=== PATIENT | female | born 1995 | race Caucasian/White ===

== ENCOUNTER 2023-12-29 15:53 | Emergency (ER) | payer OTHER, SELFPAY ==
--- NOTE | 2023-12-29 17:03 | RAD REPORT ---
EXAM DESCRIPTION: RAD - Tib Fib Right - 12/29/2023 4:58 pm CLINICAL HISTORY: PAIN COMPARISON: No comparisons FINDINGS/IMPRESSION: No acute fracture. No malalignment. No significant focal degenerative changes.
--- NOTE | 2023-12-29 17:52 | ER ---
Nurse's Notes [facility] Name: Marilee Theodore Age: 28 yrs Sex: Female : 1995 Arrival Date: 12/29/2023 Time: 15:53 Bed DX3 Private MD: Diagnosis: Contusion of right lower leg Presentation: 12/28 16:27 Chief complaint: Patient states: Pt states she was rushing while walking down concrete tl4 steps and fell backward at approx 1000. Pt c/o pain in her right lower leg. Pt denies LOC, striking her head. Coronavirus screen: At this time, the client does not indicate any symptoms associated with coronavirus-19. Ebola Screen: No symptoms or risks identified at this time. Initial Sepsis Screen: Does the patient meet any 2 criteria? No. Patient's initial sepsis screen is negative. Does the patient have a suspected source of infection? No. Patient's initial sepsis screen is negative. Risk Assessment: Do you want to hurt yourself or someone else? Patient reports no desire to harm self or others. Onset of symptoms was December 29, 2023 at 10:00. 16:27 Method Of Arrival: Ambulatory tl4 16:27 Acuity: CARLEEN 4 tl4 Triage Assessment: 16:30 General: Appears in no apparent distress. Behavior is calm, cooperative. Pain: tl4 Complains of pain in right leg. EENT: No signs and/or symptoms were reported regarding the EENT system. Neuro: Level of Consciousness is awake, alert, obeys commands, Oriented to person, place, time, situation, Moves all extremities. Full function. Cardiovascular: Capillary refill < 3 seconds Patient's skin is warm and dry. Respiratory: Airway is patent Respiratory effort is even, unlabored, Respiratory pattern is regular, symmetrical, Breath sounds are clear bilaterally. GI: No signs and/or symptoms were reported involving the gastrointestinal system. : No signs and/or symptoms were reported regarding the genitourinary system. Derm: No signs and/or symptoms reported regarding the dermatologic system. Musculoskeletal: No signs and/or symptoms reported regarding the musculoskeletal system. 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 - Infectious Disease History:: Denies. - Social history:: Smoking status: Patient denies any tobacco usage or history of. - Family history:: not pertinent. - Hospitalizations: : No recent hospitalization is reported. Screenin:54 [facility] ED Fall Risk Assessment (Adult) History of falling in the last 3 months, ll1 including since admission Yes- physiologic fall (2 pts) Confusion or Disorientation No (0 pts) Intoxicated or Sedated No (0 pts) Impaired Gait No (0 pts) Mobility Assist Device Used No (0 pt) Altered Elimination No (0 pt) Score/Fall Risk Level 0 - 2 = Low Risk Maintained a safe environment, Hourly rounding (assess needs \T\ fall precautionary measures) done. Abuse screen: Denies threats or abuse. Nutritional screening: No deficits noted. Tuberculosis screening: No symptoms or risk factors identified. Assessment: 17:54 Reassessment: No changes from previously documented assessment. Patient and/or family ll1 updated on plan of care and expected duration. Pain level reassessed. Patient is alert, oriented x 3, equal unlabored respirations, skin warm/dry/pink. Vital Signs: 16:27 BP 141 / 102; Pulse 102; Resp 20; Temp 97.4(TE); Pulse Ox 98% on R/A; Weight 156.94 kg; tl4 Height 5 ft. 7 in. ; Pain 6/10; 16:27 Body Mass Index 54.19 (156.94 kg, 170.18 cm) tl4 16:27 Pain Scale: Adult tl4 ED Course: 15:59 Patient arrived in ED. mg5 16:00 Regulo Gonsales MD is Attending Physician. rn 16:29 Triage completed. tl4 16:32 Arm band placed on right wrist. tl4 16:59 XRAY Tib Fib RIGHT In Process Unspecified. EDMS 17:30 Patient placed in a hallway bed, in a wheelchair. ll1 17:54 Nell Culver, SHON is Primary Nurse. ll1 17:55 Patient has correct armband on for positive identification. Provided Education on: ll1 return for worsening symptoms. 17:55 No provider procedures requiring assistance completed. Patient did not have IV access ll1 during this emergency room visit. Administered Medications: No medications were administered Medication: 17:55 VIS not applicable for this client. ll1 Outcome: 17:51 Discharge ordered by . rn 17:55 Discharged to home ambulatory, ll1 17:55 Condition: stable 17:55 Discharge instructions given to patient, Instructed on discharge instructions, follow up and referral plans. Demonstrated understanding of instructions, follow-up care, 17:56 Patient left the ED. ll1 Signatures: Dispatcher [employer] EDMS Regulo Gonsales MD MD rn Lewis, Lynsay, RN RN ll1 Aby Molina mg5 Neptali Scott RN RN tl4 Corrections: (The following items were deleted from the chart) 16:30 16:29 Home Meds: None; tl4 tl4
--- NOTE | 2023-12-29 17:52 | EDPHYS ---
Physician Documentation [facility] Name: Marilee Theodore Age: 28 yrs Sex: Female : 1995 Arrival Date: 12/29/2023 Time: 15:53 Bed DX3 Private MD: ED Physician Regulo Gonsales HPI: 12/28 16:47 This 28 yrs old Female presents to ER via Ambulatory with complaints of Fall Injury. rn 16:47 Details of fall: The patient fell from an upright position, while walking. rn 16:47 Onset: The symptoms/episode began/occurred today. Associated injuries: The patient rn sustained Right pretibial region. Severity of symptoms: At their worst the symptoms were mild, in the emergency department the symptoms are unchanged. The patient has not experienced similar symptoms in the past. Patient reports walking stairs and slipped, hit right lower extremity on something. Reports pain with flexion and pending but no bony pain. No bruising. Ambulatory. She needs to go back to work so wanted to make sure nothing was broken.. 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 - Infectious Disease History:: Denies. - Social history:: Smoking status: Patient denies any tobacco usage or history of. - Family history:: not pertinent. - Hospitalizations: : No recent hospitalization is reported. ROS: 16:47 Constitutional: Negative for fever, chills, and weight loss, Neck: Negative for injury, rn pain, and swelling, Cardiovascular: Negative for chest pain, palpitations, and edema, Respiratory: Negative for shortness of breath, cough, wheezing, and pleuritic chest pain, Abdomen/GI: Negative for abdominal pain, nausea, vomiting, diarrhea, and constipation, Back: Negative for back pain MS/Extremity: Positive for right pretibial pain Neuro: Negative for headache, weakness, numbness, tingling, and seizure, Exam: 16:47 Constitutional: This is a well developed, well nourished patient who is awake, alert, rn and in no acute distress. MS/ Extremity: Pulses equal, no cyanosis. Neurovascular intact. Full, normal range of motion. Equal circumference. Mild tenderness right mid pretibial region and just lateral to this area. No ecchymosis or open wounds. No gross deformity. Vital Signs: 16:27 BP 141 / 102; Pulse 102; Resp 20; Temp 97.4(TE); Pulse Ox 98% on R/A; Weight 156.94 kg; tl4 Height 5 ft. 7 in. ; Pain 6/10; 16:27 Body Mass Index 54.19 (156.94 kg, 170.18 cm) tl4 16:27 Pain Scale: Adult tl4 MDM: 16:00 Patient medically screened. rn 17:50 Differential diagnosis: contusion, fracture, sprain, strain. Data reviewed: vital rn signs, nurses notes, radiologic studies, plain films, and as a result, I will discharge patient. Counseling: I had a detailed discussion with the patient and/or guardian regarding the historical points, exam findings, and any diagnostic results supporting the discharge/admit diagnosis, radiology results, the need for outpatient follow up, to return to the emergency department if symptoms worsen or persist or if there are any questions or concerns that arise at home. Special discussion: I discussed with the patient/guardian in detail that at this point there is no indication for admission to the hospital. It is understood, however, that if the symptoms persist or worsen the patient needs to return immediately for re-evaluation. ED course: X-ray left tib-fib negative for acute fracture or dislocation per my interpretation.. 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 EDMS EDMS 16:29 Home Meds: None; tl4 tl4
[2023-12-29 23:24] VITALS: BP 141/102; TEMP 97.4; O2SAT 98
== END 2023-12-29 17:56 | disposition home or self-care (01) ==
LOC: ER 15:53
DX: S80.11XA Contusion of right lower leg, initial encounter (principal)
CPT/HCPCS: 99282